=== PATIENT | male | born 1960 ===

== ENCOUNTER 2017-08-24 12:24 | Emergency (ER) | payer MEDICAID ==
[~2017-08-24] VITALS: Ht 177.8 cm; Wt 90.7 kg
[2017-08-24] MEDS ORDERED: CYCL10TA29 PO ×2 (12:42→13:40)
[2017-08-24] MEDS ORDERED: GLIM2TAB43 PO (12:42)
[2017-08-24] MEDS ORDERED: GABA-549 PO (12:42)
[2017-08-24] MEDS ORDERED: AMLO-96 PO (12:42)
[2017-08-24] MEDS ORDERED: cloNIDine HCL 0.1 MG TAB PO ONE (13:00)
--- NOTE | 2017-08-24 13:28 | RADIOLOGY IMAGING REPORT ---
FACILITY: [facility] - [place] PATIENT NAME: Jamari Ortiz : 1960 MR: [id number] V: [id number] EXAM DATE: ORDERING PHYSICIAN: TATY MUHAMMAD TECHNOLOGIST: [place] [facility] [place] Jamari Ortiz : 1960 Visit/Account:[id number] Date of Sevice: 08/24/2017 Exam type: SHOULDER MIN 2 VIEWS RIGHT History: Right arm pain neck pain Comparison: None. Findings: There is a small peritendinous calcification adjacent to the right bicipital groove. No significant narrowing at the right glenohumeral joint. No evidence of acute fracture dislocation seen. There ar e mild degenerative changes at the right AC joint. IMPRESSION: 1. Small peritendinous calcification is noted adjacent to the bicipital groove. Mild degenerative c hanges of the right AC joint Report Dictated By: Tatianna Real MD at 08/24/2017 1:21 PM Report E-Signed By: Tatianna Real MD at 08/24/2017 1:22 PM WSN:[email or web address]
--- NOTE | 2017-08-24 13:31 | RADIOLOGY IMAGING REPORT ---
FACILITY: [facility] PATIENT NAME: Jamari Ortiz : 1960 MR: [id number] V: [id number] EXAM DATE: ORDERING PHYSICIAN: TATY MUHAMMAD TECHNOLOGIST: Location: [facility] - [place] Patient: Jamari Ortiz : 1960 Visit/Account:[id number] Date of Sevice: 08/24/2017 Exam type: CERVICAL SPINE 2 OR 3 VIEW History: arm pain Comparison: None. Findings: There is straightening of the normal as cervical lordosis which can be seen with muscle spasm. A wel l-corticated bony density projects just anterior to C5-6 which may represent a syndesmophyte in the a bsence of history of trauma. Small linear calcified occasions also project just anterior to the odon toid process. There is no evidence of prevertebral soft tissue swelling. IMPRESSION: 1. Straightening of normal cervical lordosis which can be seen with muscle spasm Small syndesmophytes anterior to C5-6 and small linear calcification just anterior to the odontoid pr ocess on the lateral view not ideally visualized on the AP view nonetheless appears chronic. No prev ertebral soft tissue swelling Report Dictated By: Tatianna Real MD at 08/24/2017 1:22 PM Report E-Signed By: Tatianna Real MD at 08/24/2017 1:27 PM WSN:[email or web address]
--- NOTE | 2017-08-24 13:40 | ER Report ---
History and Physical Time Seen By MD: 12:25 Hx. of Stated Complaint: RIGHT SHOULDER PAIN SINCE FEBRUARY 2017 HPI/ROS CHIEF COMPLAINT: Right shoulder pain HISTORY OF PRESENT ILLNESS: 56-year-old male comes emergency Department with complaint of right-sided shoulder chronic pain for the past year says he's been on living here for about a month and knees been seen as an outpatient physical therapy didn't help much seething smear some neck issues as well pain is in the anterior part of the shoulder some radiation down the bicipital area patient denies any recent falls or trauma on otherwise unremarkable no additional complaints noted patient's denying midline cervical spinal tenderness REVIEW OF SYSTEMS: Respiratory: No cough, no dyspnea. Cardiovascular: No chest pain, no palpitations. Gastrointestinal: No vomiting, no abdominal pain. Musculoskeletal: Right shoulder pain Remainder of the 14 system rev: Yes Allergies: Coded Allergies: No Known Drug Allergies (Unverified , 08/24/17) Home Meds Reported Medications Amlodipine Besylate (AMLODIPINE BESYLATE) 5 Mg Tablet, 1 TAB PO QDAY, TAB 08/24/17 Gabapentin (GABAPENTIN) 300 Mg Capsule, 100 MG PO TID, CAPSULE 08/24/17 Cyclobenzaprine Hcl (CYCLOBENZAPRINE HCL) 10 Mg Tablet, 10 MG PO BID, #9 TAB 08/24/17 Glimepiride (GLIMEPIRIDE) 2 Mg Tablet, 2 MG PO QDAY 08/24/17 Gabapentin (GABAPENTIN) 300 Mg Capsule, 800 MG PO TID, CAPSULE 08/24/17 Reviewed Nurses Notes: Yes Old Medical Records Reviewed: Yes Hx Substance Use Disorder: No Hx Alcohol Use: No Constitutional Vital Sign - Last 24 Hours 08/24/17 08/24/17 12:30 12:45 Temp 98.6 Pulse 108 Resp 20 B/P (MAP) 196/134 (154) Pulse Ox 94 O2 Delivery Room Air Physical Exam General Appearance: The patient is alert, has no immediate need for airway protection and no current signs of toxicity. [ ] Eyes: Pupils equal and round no injection. Respiratory: Chest is non tender, lungs are clear to auscultation. Cardiac: regular rate and rhythm [ ] Gastrointestinal: Abdomen is soft and non tender, no masses, bowel sounds normal. Musculoskeletal: Right shoulder examination pain with elevation his shoulder above 90 pain with internal/external rotation no obvious bony step-offs neurovascular intact Neck is supple and non tender. Extremities have full range of motion and are non tender. Skin: No rashes or lesions. [ ] DIFFERENTIAL DIAGNOSIS: After history and physical exam differential diagnosis was considered for cervical radiculopathy degenerative disc disease Medical Decision Making ED Course/Re-evaluation ED Course ED clinical course patient is a 56-year-old male comes in with a year of chronic right shoulder pain CT or correction x-ray of the cervical spine shows loss of cervical her doses and some mild degenerative changes x-ray of the shoulder again show some mild degenerative changes osteophytic changes as well with clinical presentation and degenerative joint disease will have him follow-up with orthopedics Decision to Disposition Date: Aug 24, 2017 Decision to Disposition Time: 13:39 Depart Departure Latest Vital Signs Vital Signs Date Time Temp Pulse Resp B/P (MAP) Pulse Ox O2 Delivery O2 Flow Rate FiO2 08/24/17 12:45 196/134 (154) 08/24/17 12:30 98.6 108 20 94 Room Air Impression: Primary Impression: Degenerative joint disease Condition: Improved Disposition: HOME OR SELF-CARE Referrals: ANDRE LESLIE MD 5 Days New Scripts Cyclobenzaprine Hcl (CYCLOBENZAPRINE HCL) 10 Mg Tablet 10 MG PO TID, #9 TAB Prov: TATY MUHAMMAD MD 08/24/17 Patient Instructions: Degenerative Disc Disease (DC) TATY MUHAMMAD MD Aug 24, 2017 13:40
[2017-08-24 13:42] VITALS: BP 164/137
== END 2017-08-24 13:57 | disposition home or self-care (01) ==
LOC: ER 12:39
DX: M19.011 Primary osteoarthritis, right shoulder (principal)
CPT/HCPCS: 72040; 73030; 99283; A4565

== ENCOUNTER → 2017-09-08 | Outpatient (CLI) | payer MEDICAID ==
[~2017-09-08] MED LIST: AMLO-96 PO; AMLO-99 PO; CYCL10TA29 PO; GAB800PT PO; GABA-547 PO; GABA-549 PO; GLIM2TAB43 PO; GLIM4TAB50 PO; LISI-362 PO
[2017-09-08 10:26] LABS: PLATELET COUNT, AUTOMATED 242 K/uL (150-450)
[2017-09-08 10:40] LABS: LDL CHOLESTEROL 134 mg/dl
== END ==
LOC: LAB 10:04
PROVIDERS: ATTEND Internal Medicine
DX: Z12.5 Encounter for screening for malignant neoplasm of prostate (principal); I10 Essential (primary) hypertension; E11.9 Type 2 diabetes mellitus without complications; E78.5 Hyperlipidemia, unspecified
CPT/HCPCS: 36415; 81001; 82040; 82043; 82247; 82310; 82374; 82435; 82465; 82565; 82947; 83036; 83718; 84075; 84132; 84153; 84155; 84295; 84443; 84450; 84460; 84478; 84520; 84550; 85025

== ENCOUNTER → 2017-10-12 | Outpatient (CLI) | payer MEDICAID ==
[~2017-10-12] MED LIST changes: +ATOR20TA65 PO; +BLOO-292; +BLOO-960 MC; +LANC-165; +LISI-353 PO; +METO25TA23 PO; +SITA50TA6 PO
--- NOTE | 2017-10-12 15:06 | EKG ---
FACILITY: [facility] [place] PATIENT NAME: HAKEEM THOMPSON : [id number] MR: [id number] V: [id number] EXAM DATE: ORDERING PHYSICIAN: ELLEN BUCKLEY TECHNOLOGIST: RACHEL Test Reason : PRE-OP Blood Pressure : / mmHG Vent. Rate : 111 BPM Atrial Rate : 111 BPM P-R Int : 174 ms QRS Dur : 086 ms QT Int : 326 ms P-R-T Axes : 064 056 066 degrees QTc Int : 443 ms Sinus tachycardia Otherwise normal ECG No previous ECGs available Referred By: MARCIO Confirmed By:
== END ==
LOC: RESP 14:56
PROVIDERS: ATTEND Internal Medicine
DX: Z02.9 Encounter for administrative examinations, unspecified (principal)

== ENCOUNTER → 2017-10-13 | Outpatient (CLI) | payer MEDICAID ==
[2017-10-13 07:53] LABS: PLATELET COUNT, AUTOMATED 217 K/uL (150-450)
--- NOTE | 2017-10-13 08:14 | RADIOLOGY IMAGING REPORT ---
FACILITY: [facility] - [place] PATIENT NAME: Jamari Ortiz : 1960 MR: [id number] V: [id number] EXAM DATE: ORDERING PHYSICIAN: ELLEN BUCKLEY TECHNOLOGIST: Location: [facility] - [place] Patient: Jamari Ortiz : 1960 Visit/Account:[id number] Date of Sevice: 10/13/2017 CHEST, 2 Views HISTORY: Preop. Hypertension. COMPARISON: None available FINDINGS: Heart size is normal. Normal size thoracic aorta. Mediastinum and pavel are unremarkable. Lungs are clear of infiltrate and atelectasis. There is no pneumothorax or pleural effusion. Bones are normal. IMPRESSION: Normal Report Dictated By: Nory Rosas MD at 10/13/2017 8:06 AM Report E-Signed By: Nory Rosas MD at 10/13/2017 8:09 AM WSN:[id number]
== END ==
LOC: RAD 07:16
PROVIDERS: ATTEND Orthopaedic Surgery
DX: Z01.812 Encounter for preprocedural laboratory examination (principal); Z01.818 Encounter for other preprocedural examination; Z01.810 Encounter for preprocedural cardiovascular examination; M75.41 Impingement syndrome of right shoulder; R91.8 Other nonspecific abnormal finding of lung field; R00.0 Tachycardia, unspecified
CPT/HCPCS: 36415; 71046; 82040; 82247; 82310; 82374; 82435; 82565; 82947; 83036; 84075; 84132; 84155; 84295; 84450; 84460; 84520; 85025

== ENCOUNTER → 2017-10-26 | Outpatient (CLI) | payer MEDICAID ==
[~2017-10-26] MED LIST changes: +REGADENOSON 0.4 MG/5 ML SYR ONE; +SITA100T PO
--- NOTE | 2017-10-26 14:24 | RADIOLOGY IMAGING REPORT ---
FACILITY: [facility] PATIENT NAME: Jamari Ortiz : 1960 MR: [id number] V: [id number] EXAM DATE: ORDERING PHYSICIAN: ELLEN BUCKLEY TECHNOLOGIST: Location: [facility] - [place] Patient: Jamari Ortiz : 1960 Visit/Account:[id number] Date of Sevice: 10/26/2017 EXAMINATION: Single isotope SPECT imaging with regadenoson infusion and gated SPECT imaging. DATE OF EXAMINATION: 10/26/2017. DATE OF INTERPRETATION: 10/26/2017. REQUESTING PHYSICIAN: ELLEN BUCKLEY. INDICATION: The patient is a 57-year-old male evaluated for chest pain. PROCEDURE: After informed consent the patient received an intravenous injection of 13.2 mCi of Tc-99 m sestamibi followed at an appropriate time interval by rest imaging. The patient then subsequently received an intravenous infusion of 0.4 mg of regadenoson per protocol without complication. Resting heart rate was 68 bpm with a peak heart rate of 82 bpm. Blood pressure at rest was 155 / 100 and fo llowing infusion was 155 / 100. Baseline EKG demonstrates normal sinus rhythm, no ST or T-wave abnor malities. There were no EKG changes of ischemia following infusion. Symptoms were nonspecific. The patient then received an intravenous injection of 30.7 mCi of Tc-99m sestamibi followed by stress im aging. RAW DATA: Examination of the summed raw data revealed a good quality study. MYOCARDIAL PERFUSION: The tomographic images demonstrate no evidence of infarct or ischemia. GATED IMAGES: The gated images demonstrate normal wall motion, ejection fraction 76%. IMPRESSION: 1. Good quality study 2. Normal myocardial perfusion scan. 3. Normal LV systolic function; LVEF 76%. 4. Based on the results of this exam, the patient appears to be at low risk for future cardiovascular events but remains intermediate risk due to inability to exercise. Report Dictated By: Reinaldo Henry at 10/26/2017 12:09 PM Report E-Signed By: Reinaldo Henry at 10/26/2017 2:20 PM WSN:[email or web address]
== END ==
LOC: NUC 01:04
PROVIDERS: ATTEND Internal Medicine
DX: R07.89 Other chest pain (principal)
CPT/HCPCS: 78452; 93017; A9500; J2785

== ENCOUNTER → 2017-11-17 | Outpatient (CLI) | payer MEDICAID ==
[~2017-11-17] MED LIST changes: +INSU100I30 SQ; -REGADENOSON 0.4 MG/5 ML SYR ONE
== END ==
LOC: LAB 06:59
PROVIDERS: ATTEND Internal Medicine
DX: E78.5 Hyperlipidemia, unspecified (principal); I10 Essential (primary) hypertension; E11.9 Type 2 diabetes mellitus without complications
CPT/HCPCS: 36415; 82040; 82247; 82310; 82374; 82435; 82465; 82565; 82947; 83036; 83718; 84075; 84132; 84155; 84295; 84450; 84460; 84478; 84520

== ENCOUNTER → 2017-11-22 | Outpatient (CLI) | payer MEDICAID ==
[~2017-11-22] MED LIST changes: +PREG50CA48 PO
[2017-11-22 09:36] LABS: PLATELET COUNT, AUTOMATED 217 K/uL (150-450)
== END ==
LOC: LAB 09:01
PROVIDERS: ATTEND Internal Medicine
DX: Z01.818 Encounter for other preprocedural examination (principal); E11.9 Type 2 diabetes mellitus without complications; I10 Essential (primary) hypertension; G62.9 Polyneuropathy, unspecified; E78.5 Hyperlipidemia, unspecified
CPT/HCPCS: 36415; 82947; 85025

== ENCOUNTER 2017-11-23 09:46 | Outpatient (RCR) | payer MEDICAID ==
[~2017-11-23] VITALS: Ht 177.8 cm; Wt 96.6 kg
--- NOTE | 2017-11-25 10:46 | Medical Nutrition Therapy ---
Nutrition Anthropometrics Height (Inches): 70 (stated) Weight (Pounds): 213 (stated) Yoshi Nutrition Score: Yoshi Nutrition Risk Score: Dietary Referral Nutrition Risk Factors: Nutrition Risk Comment: Nutrition/Food History Breakfast: skips, gets up at 10:00 Lunch: 1:00 eggs, braswell, grits or cereal/milk Dinner: 8:00 fried meat or gumbo/rice, biscuits, gravy ,veg, starch Snacks: milk and cookies Nutritional Education Nutrition Education Topic: Diabetic Nutrition Learning Readiness: Little Interest Teaching Methods: Discussion, Handout Response to Teaching: Verbalize understanding Teaching Recipient: Patient Nutrition Counseling: Pt states he is from [place] and cont to eat his cultural foods. Pt states he was told to bring his blood glucose down because of needed shoulder surgery. Pt is unaware of what his A1C is but is usually 200's. Pt doesn't think he eats many CHO but when revieweing his reported typical day, RD pointed out the CHO he eats which is most of his foods. Discussed how bringing down BG means either more meds/insulin or less CHO. Discussed glycemic affect. Reviewed plate method and foods that contain CHO. Pt was willing to add more veg to meals. Recommended a modified low CHO, high protein diet with unlimited meats that could include gumbo and fried chicken which are one of his cultural foods, unlimited non-starchy veg, and milk. Pt would avoid starchy foods and sweets. Recommend pt eat a protein/veg snack afternoon so he isn't so hungry at night. Pt agreed that he could modify his current intake to bring his BG down at least until he had his surgery. Pt refused f/u visit. Pt stated he was uninterested in diabetic classes, support plan or behavioural goals. Will provide f/u phone call next week. Nutrition Monitoring & Eval RD Patient Assessment Time: [address] Assessment Type: RD Education Nutritional Comment: Provided 60 minute education for diabetes focusing on nutrtion. Pt refused further classes, goals or behavioual support plan. Copies To Copies to: ELLEN BUCKLEY MD, BETH Nov 23, 2017 16:41
[2018-01-05] MEDS ORDERED: ATOR20TA65 PO (14:43)
[2018-01-05] MEDS ORDERED: LISI-353 PO (14:43)
[2018-01-05] MEDS ORDERED: CYCL10TA29 PO (16:49)
== END 2017-12-28 ==
LOC: DIET 09:46
PROVIDERS: ATTEND Internal Medicine
DX: Z71.3 Dietary counseling and surveillance (principal); E11.9 Type 2 diabetes mellitus without complications; I10 Essential (primary) hypertension; G62.9 Polyneuropathy, unspecified; M25.511 Pain in right shoulder
CPT/HCPCS: G0108 ×2

== ENCOUNTER → 2017-12-02 | Outpatient (CLI) | payer MEDICAID ==
[2017-12-02 07:51] LABS: PLATELET COUNT, AUTOMATED 205 K/uL (150-450)
== END ==
LOC: LAB 07:29
PROVIDERS: ATTEND Internal Medicine
DX: E78.5 Hyperlipidemia, unspecified (principal); I10 Essential (primary) hypertension; E11.9 Type 2 diabetes mellitus without complications
CPT/HCPCS: 36415; 83036; 85025